=== PATIENT | male | born 1995 | race Caucasian/White ===

== ENCOUNTER 2017-03-11 01:32 | Inpatient (IN) | payer BC, MEDICAID ==
[~2017-03-11] VITALS: Ht 165.1 cm; Wt 59.0 kg
[2017-03-11 01:35] VITALS: BP 129/74; PULSE 91; RESP 18; TEMP 97.8; O2SAT 98
--- NOTE | 2017-03-11 01:40 | NUR ---
Patient to ER bed 7 to gown for evaluation. Side rails up. Report given to Oriana AMADOR.
--- NOTE | 2017-03-11 01:50 | NUR ---
Patient to ER C/O severe epigastric pain 8/10 since last evening. States "i think i ate bad chicken" nausea, vomiting x6, diarrhea x2. Afebrile, AAOx4, unlabored breathing, no signs of acute distress.
--- NOTE | 2017-03-11 01:54 | NUR ---
ER MD Bolden at bedside for evaluation
[2017-03-11] MEDS ORDERED: NACL 0.9% 1,000 ML IV ONE (01:58)
[2017-03-11] MEDS ORDERED: ONDANSETRON HCL 4 MG/2 ML VIAL IVP ONE ×2 (02:00→04:45)
[2017-03-11] MEDS ORDERED: MAG HYDROX/AL HYDROX/SIMETH 30 ML, BELLADONNA ALKALOIDS/PHENOBARB 10 ML, LIDOCAINE VISC... PO ONE ×3 (02:00)
[2017-03-11 02:14] LABS: HEMATOCRIT 49.8 % (36-54); HEMOGLOBIN 16.1 g/dL (14.0-18.0); MEAN CORPUSCULAR HEMOGLOBIN 30 pg (27-31); MEAN CORPUSCULAR HGB CONC 32 % (32-36); MEAN CORPUSCULAR VOLUME 92 fL (79.0-98.0); PLATELET COUNT (AUTO) 267 K/uL (130-430); RED BLOOD CELL COUNT(AUTO) 5.44 MIL/uL (4.2-6.2); RED CELL DISTRIBUTION WIDTH 12.4 % (9.0-15.0); WHITE BLOOD COUNT (AUTO) 16.8 K/uL (4.8-10.8)
--- NOTE | 2017-03-11 02:16 | NUR ---
Patient states that he is unable to provide urine sample. At this time, declines I&O catheter. ER MD Bolden aware.
[2017-03-11 02:22] LABS: CALCIUM 9.1 mg/dL (8.4-11.0); CREATININE 1.03 mg/dL (0.55-1.30); POTASSIUM 3.7 mmol/L (3.5-5.1)
[2017-03-11 02:28] LABS: ALBUMIN 4.4 g/dL (3.4-4.8); TOTAL BILIRUBIN 0.7 mg/dL (0.0-1.0); TOTAL PROTEIN, SERUM 8.5 g/dL (6.4-8.3)
[2017-03-11 02:30] LABS: BAND % (MANUAL) 3 % (0-6); BASOPHILS % (MANUAL) 0 % (0-2); EOSINOPHILS % (MANUAL) 0 % (0-7); LYMPHOCYTES % (MANUAL) 4 % (20-46); MONOCYTES % (MANUAL) 5 % (0-11)
[2017-03-11 03:03] LABS: BILIRUBIN,URINE NEGATIVE (NEGATIVE); BLOOD, URINE NEGATIVE (NEGATIVE); CLARITY/URINE CLEAR (CLEAR); COLOR,URINE YELLOW (YELLOW); GLUCOSE,URINE NEGATIVE (NEGATIVE); KETONES,URINE 1+ (NEGATIVE); LEUKOCYTE ESTERASE ,URINE NEGATIVE (NEGATIVE); NITRITE, URINE NEGATIVE (NEGATIVE); PH,URINE 6.5 (5.0-8.0); PROTEIN URINE NEGATIVE (NEGATIVE); UROBILINOGEN,URINE 0.2 (0.2-1.0)
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
--- NOTE | 2017-03-11 04:42 | NUR ---
Patient C/O continuous nausea and had 2 episodes of vomiting in ER. MD spring.
[2017-03-11] MEDS ORDERED: ACETAMINOPHEN 500 MG TABLET PO ONE (04:45)
[2017-03-11] MEDS ORDERED: HYDROmorphone 1 MG INJ. 1 MG/ML AMPUL IVP ONE (05:45)
[2017-03-11] MEDS ORDERED: PROMETHAZINE HCL 25 MG/ML AMP IVP ONE (05:45)
--- NOTE | 2017-03-11 06:02 | NUR ---
Densitometer Reader called back and gave me an autherization # [id number]
[2017-03-11] MEDS: cefTRIAXone 1 GM in D5W 50 ML IV ONE ×2 (06:35→07:04)
[2017-03-11] MEDS ORDERED: cefTRIAXone 1 GM VIAL ONE (06:36)
--- NOTE | 2017-03-11 06:54 | NUR ---
Medication reconciliation completed with information provided by - NO HOME MEDS PER PATIENT. Any prior medication reconciliation on file was reviewed and corrected.
--- NOTE | 2017-03-11 07:01 | NUR ---
Semiconductor Assembler at bedside for blood draw: lactic acid & blood cultures. Patient identified x2.
--- NOTE | 2017-03-11 07:05 | NUR ---
Patient will be admitted to care of Dr Hamm. Admitted to MS in unit. Will go to room 135. Belongings list completed. Summary report printed. Report will be given at bedside.
--- NOTE | 2017-03-11 07:24 | NUR ---
ADMISSION: The patient, YUAN STEWARD, 21 y/o, M admitted by MARK QUIROZ MD, was given written information regarding hospital policies, unit procedures and contact persons. Valuables were checked and reviewed.
[2017-03-11 07:30] VITALS: BP 124/78; PULSE 78; RESP 16; TEMP 100.2; O2SAT 98
[2017-03-11 08:00] VITALS: BP 124/78; PULSE 78; RESP 16; TEMP 100.2; O2SAT 98
--- NOTE | 2017-03-11 08:05 | NUR ---
OPENING NOTE: RECEIVED PATIENT REPORT FROM RAÚL, ADMITTING NURSE. PATIENT IS RESTING COMFORTABLY, DROWSY FROM MEDICATION GIVEN IN ER. PATIENT HAS NO COMPLAINTS OF PAIN AT THIS TIME. PATIENT HAS NO NOTABLE SIGNS OF DISTRESS AT THIS TIME. PATIENT BED IN LOWEST POSITION, CALL LIGHT WITHIN REACH, AND 2 SIDE RAILS ARE UP FOR SAFETY. PATIENT ENCOURAGED TO CALL IF NEEDS ARISE. FRIEND IS AT BEDSIDE FOR COMFORT. WILL CONTINUE TO MONITOR PATIENT FOR CHANGES IN STATUS. PATIENT WAITING FOR UA, US ABDOMEN, CBC AND CMP RESULTS.
--- NOTE | 2017-03-11 10:00 | NUR ---
1000 NOTE: PATIENT IS RESTING COMFORTABLY, CONTINUED DROWSINESS FROM MEDICATION GIVEN IN ER. PATIENT HAS NO COMPLAINTS OF PAIN AT THIS TIME. PATIENT HAS NO NOTABLE SIGNS OF DISTRESS AT THIS TIME. PATIENT BED IN LOWEST POSITION, CALL LIGHT WITHIN REACH, AND 2 SIDE RAILS ARE UP FOR SAFETY. PATIENT ENCOURAGED TO CALL IF NEEDS ARISE. FRIEND IS AT BEDSIDE FOR COMFORT. WILL CONTINUE TO MONITOR PATIENT FOR CHANGES IN STATUS. PATIENT HAD US OF THE ABDOMEN: GALLBLADDER CONTRACTED WITH NO EVIDENCE OF STONES; NEGATIVE FOR HYDRONEPHROSIS. WILL CONTINUE TO MONITOR PATIENT FOR CHANGES IN STATUS.
[2017-03-11 10:26] LABS: ALBUMIN 4.1 g/dL (3.4-4.8); CALCIUM 8.7 mg/dL (8.4-11.0); CREATININE 1.02 mg/dL (0.55-1.30); POTASSIUM 4.5 mmol/L (3.5-5.1); TOTAL BILIRUBIN 0.8 mg/dL (0.0-1.0); TOTAL PROTEIN, SERUM 7.5 g/dL (6.4-8.3)
[2017-03-11 10:27] LABS: BASOPHILS # (AUTO) 0.3 K/uL (0.0-0.2); BASOPHILS % (AUTO) 2.1 % (0.0-2.0); EOSINOPHILS % (AUTO) 0.1 % (0.0-4.0); HEMATOCRIT 47.1 % (36-54); HEMOGLOBIN 15.3 g/dL (14.0-18.0); LYMPHOCYTES # (AUTO) 0.2 K/uL (1.0-5.5); LYMPHOCYTES % (AUTO) 1.5 % (20.5-51.5); MEAN CORPUSCULAR HEMOGLOBIN 30 pg (27-31); MEAN CORPUSCULAR HGB CONC 33 % (32-36); MEAN CORPUSCULAR VOLUME 92 fL (79.0-98.0); MONOCYTES # (AUTO) 0.2 K/uL (0.0-1.0); MONOCYTES % (AUTO) 1.7 % (1.7-9.3); NEUTROPHILS # (AUTO) 13.7 K/uL (1.8-7.7); NEUTROPHILS % (AUTO) 94.6 % (40.0-70.0); PLATELET COUNT (AUTO) 246 K/uL (130-430); RED CELL DISTRIBUTION WIDTH 12.5 % (9.0-15.0); WHITE BLOOD COUNT (AUTO) 14.4 K/uL (4.8-10.8)
--- NOTE | 2017-03-11 10:38 | NUR ---
CONSULT SURGERY ABDOMINAL PAIN DR WHITE [phone] S/W [facility] OFFICE @ [phone]
--- NOTE | 2017-03-11 10:39 | NUR ---
CONSULT NEUROLOGY HEADACHE DR GUIDRY [phone] DR PHILLIPS STORE SALES LEADER S/W [facility] OFFICE @[phone]
[2017-03-11] MEDS: NACL 0.9% 1,000 ML IV SCH ×2 (11:11→15:06)
[2017-03-11 12:00] VITALS: BP 130/97; PULSE 93; RESP 15; TEMP 102.5; O2SAT 98
--- NOTE | 2017-03-11 12:57 | NUR ---
1200 NOTE: PATIENT IS RESTING COMFORTABLY, CONTINUED DROWSINESS FROM MEDICATION GIVEN IN ER. PATIENT HAS NO COMPLAINTS OF PAIN AT THIS TIME. PATIENT HAS NO NOTABLE SIGNS OF DISTRESS AT THIS TIME. PATIENT BED IN LOWEST POSITION, CALL LIGHT WITHIN REACH, AND 2 SIDE RAILS ARE UP FOR SAFETY. PATIENT ENCOURAGED TO CALL IF NEEDS ARISE. FRIEND IS AT BEDSIDE FOR COMFORT. PATIENT NEEDS CONSENT FOR SPINAL TAP FOR CSF EVALUATION. WILL CONTINUE TO MONITOR PATIENT FOR CHANGES IN STATUS.
--- NOTE | 2017-03-11 14:25 | NUR ---
1400 NOTE: PATIENT IS RESTING COMFORTABLY, PATIENT HAS NO COMPLAINTS OF PAIN AT THIS TIME. PATIENT HAS NO NOTABLE SIGNS OF DISTRESS AT THIS TIME. PATIENT BED IN LOWEST POSITION, CALL LIGHT WITHIN REACH, AND 2 SIDE RAILS ARE UP FOR SAFETY. PATIENT ENCOURAGED TO CALL IF NEEDS ARISE. FAMILY IS AT BEDSIDE FOR COMFORT. PATIENT HAD SPINAL TAP PROCEDURE PERFORMED, CSF FLUID IS IN LAB AWAITING TESTING. NO COMPLICATIONS NOTED DURING PROCEDURE. PATIENT RECEIVED LOCAL ANESTHETIC ONLY. WILL CONTINUE TO MONITOR PATIENT FOR CHANGES IN STATUS.
[2017-03-11] MEDS ORDERED: LIDOCAINE 1%, 20 ML MDV 20 ML ONE (15:16)
[2017-03-11 16:00] VITALS: BP 127/91; PULSE 87; RESP 14; TEMP 99.1; O2SAT 98
--- NOTE | 2017-03-11 16:18 | NUR ---
1600 NOTE: PATIENT IS RESTING COMFORTABLY, PATIENT IS VISITING WITH FAMILY AT BEDSIDE. PATIENT HAS NO COMPLAINTS OF PAIN AT THIS TIME. PATIENT HAS NO NOTABLE SIGNS OF DISTRESS AT THIS TIME. PATIENT BED IN LOWEST POSITION, CALL LIGHT WITHIN REACH, AND 2 SIDE RAILS ARE UP FOR SAFETY. PATIENT ENCOURAGED TO CALL IF NEEDS ARISE. WILL CONTINUE TO MONITOR PATIENT FOR CHANGES IN STATUS.
[2017-03-11 16:23] LABS: CSF APPEARANCE CLEAR (CLEAR); CSF COLOR COLORLESS (COLORLESS); CSF TUBE NUMBER 1; CSF VOLUME 6.5 mL
[2017-03-11 16:39] LABS: CSF RED BLOOD CELL COUNT 463 /uL (0-0); CSF WHITE BLOOD CELL COUNT 3 /uL (0-5)
[2017-03-11 16:40] LABS: CSF GLUCOSE 74 mg/dL (40-70); CSF PROTEIN 29 mg/dL (15-45)
[2017-03-11] MEDS ORDERED: VALPROATE SODIUM 500 MG in D5W 100 ML IV SCH (18:00)
[2017-03-11] MEDS ORDERED: SUMAtriptan SUCCINATE 6 MG/0.5 ML VIAL SUBCUT ONE (18:00)
--- NOTE | 2017-03-11 18:45 | NUR ---
1800 NOTE: PATIENT IS RESTING COMFORTABLY, FAMILY AND FRIENDS AT BEDSIDE. PATIENT HAS NO COMPLAINTS OF PAIN AT THIS TIME. MILD DISCOMFORT IN THE UMBILICUS REGION. MILD NAUSEA AT THIS TIME. PATIENT HAS NO NOTABLE SIGNS OF DISTRESS AT THIS TIME. PATIENT BED IN LOWEST POSITION, CALL LIGHT WITHIN REACH, AND 2 SIDE RAILS ARE UP FOR SAFETY. PATIENT ENCOURAGED TO CALL IF NEEDS ARISE. WILL CONTINUE TO MONITOR PATIENT FOR CHANGES IN STATUS.
--- NOTE | 2017-03-11 18:50 | NUR ---
NOTE ALL NEEDS MET THROUGHOUT SHIFT, AWAITING SHIFT ENDORSEMENT TO COLUMN PRECASTER NURSE. WILL CONTINUE TO MONITOR FOR CHANGES IN STATUS.
[2017-03-11] MEDS ORDERED: VALPROATE SODIUM 500 MG in D5W 100 ML IV ONE (19:15)
--- NOTE | 2017-03-11 19:15 | NUR ---
AGRICULTURAL MECHANIC: RAPID RESPONSE TEAM ARRIVED AT BEDSIDE. NOTIFIED, STAT ORDERS GIVEN BY DR. PHILLIPS.
--- NOTE | 2017-03-11 19:19 | NUR ---
PAGED PAGED NATALIE TELLEZ AT [phone] SPOKE WITH CARLOZ.
--- NOTE | 2017-03-11 19:25 | NUR ---
INITIAL NOTE PT. CRYING, STATED HE IS UNABLE TO MOVE LEFT ARM AND LEFT LEG, RIGHT HAND JANITORIAL MAINTENANCE WORKER STRONG, PT. ABLE TO WIGGLE TOES TO RIGHT FOOT. RAPID RESPONSE CALLED. VITAL SIGNS TAKEN.
[2017-03-11] MEDS ORDERED: VALPROATE SODIUM 100 MG/ML VIAL (DEPACON) IV ONE (19:27)
--- NOTE | 2017-03-11 19:35 | NUR ---
ER DOCTOR FIGUEROA AT BEDSIDE EVALUATING THE PT.
--- NOTE | 2017-03-11 19:45 | NUR ---
PT. TAKEN TO RADIOLOGY PT. TAKEN TO RADIOLOGY WITH NURSE AND MONITOR FOR STAT CT HEAD, CTA HEAD, CTA NECK.
[2017-03-11] MEDS ORDERED: IOHEXOL 100 ML IV ONE (20:00)
--- NOTE | 2017-03-11 20:15 | NUR ---
TRANSFER PATIENT TRANSFERRED TO [facility] VIA EMS. PATIENT BELONGINGS SENT WITH PATIENTS FAMILY.
[2017-03-11 20:40] VITALS: BP 133/87; PULSE 112; RESP 18; TEMP 99.1; O2SAT 99
--- NOTE | 2017-03-11 20:44 | NUR ---
PT. TRANSFERRED PT. TRANSFERRED TO [facility] VIA AMBULANCE, BELONGINGS SENT WITH FAMILY. TRANSFER ACKNOWLEDGEMENT DONE.
--- NOTE | 2017-03-11 22:29 | NUR ---
NOTE PATIENT TAKEN TO CT BRAIN AND HEAD WITH/WITHOUT CONTRAST. PATIENT TRANSPORTED WITH PORTABLE MONITOR AND OXYGEN.
[2017-03-12] MEDS ORDERED: VALPROATE SODIUM 500 MG in D5W 100 ML IV SCH (06:00)
[2017-03-13 11:08] LABS: VDRL, CSF Non Reactive (Non Rea:<1:1)
== END 2017-03-11 20:44 | disposition short-term general hospital (02) | DRG 54 ==
LOC: SED 01:32 → SMU 07:06 → STU 19:47
PROVIDERS: ADMIT Internal Medicine Hospice and Palliative Medicine; ATTEND Internal Medicine Hospice and Palliative Medicine
PROC: 009U3ZX Drainage of Spinal Canal, Percutaneous Approach, Diagnostic (ICD-10-PCS; principal; 2017-03-11)
PROC: B01B1ZZ Fluoroscopy of Spinal Cord using Low Osmolar Contrast (ICD-10-PCS; 2017-03-11)
DX: G43.909 Migraine, unspecified, not intractable, without status migrainosus (principal); D72.829 Elevated white blood cell count, unspecified; M54.2 Cervicalgia; R10.9 Unspecified abdominal pain; M43.6 Torticollis; T39.8X1A Poisoning by other nonopioid analgesics and antipyretics, not elsewhere classified, accidental (unintentional), initial encounter; R53.1 Weakness; Y92.238 Other place in hospital as the place of occurrence of the external cause; R20.0 Anesthesia of skin; Y93.89 Activity, other specified; Y99.8 Other external cause status
CPT/HCPCS: 36415; 62270; 70450-TC; 70496; 70498; 76700-TC; 80053; 81003; 82150-TC; 82947-TC; 82962; 83605; 83690-TC; 84157-TC; 85007; 85025; 85027; 85048; 85610-TC; 85730-TC; 86592; 86788; 86789; 87040-TC; 87899; 89051-TC; 93005; 96361; 96365; 96375; 99285; J0696; J1170; J2001; J2405; J2550; J3030; J7030; J7060; Q9967